=== PATIENT | male | born 1955 | race Caucasian/White ===

== ENCOUNTER 2022-09-05 06:01 | Inpatient (IN) | payer OTHER ==
[~2022-09-05] VITALS: Ht 170.2 cm; Wt 73.0 kg
[2022-09-05] VITALS (25 sets, daily range): BP systolic 74–134; BP diastolic 25–57
[2022-09-05] MEDS ORDERED: ALLO100T PO (06:39)
[2022-09-05] MEDS ORDERED: AMOX-427 PO (06:39)
[2022-09-05] MEDS ORDERED: AMOX500C2 PO (06:39)
[2022-09-05] MEDS ORDERED: HYDR-3972 PO (06:39)
--- NOTE | 2022-09-05 06:43 | NUR ---
Patient's caregiver Bandar Calvo who gave DPA number Marly Nilesh contact.
[2022-09-05] MEDS ORDERED: IV NORMAL SALINE 500 ML BAG IV ONE (06:45)
[2022-09-05] MEDS ORDERED: ATROPINE SULFATE 1 MG/10 ML DISP.SYRIN ONE (06:57)
[2022-09-05] MEDS ORDERED: EPINEPHRINE 1:10,000 1 MG/10 ML DISP.SYRIN ONE (06:57)
[2022-09-05] MEDS ORDERED: NALOXONE HCL 0.4 MG/ML AMPUL IV ONE (07:00)
[2022-09-05] MEDS ORDERED: ATROPINE SULFATE 1 MG/10 ML DISP.SYRIN IV ONE (07:00)
[2022-09-05] MEDS ORDERED: CALCIUM GLUCONATE IV 1 GM in IV DEXTROSE 5% 50 ML IV ONE ×2 (07:30→07:45)
[2022-09-05 07:32] LABS: SITE, VBG RIGHT RADIAL
[2022-09-05 07:33] LABS: HEMATOCRIT 28.3 % (36.7-47.1); MEAN CORPUSCULAR HEMOGLOBIN 26.7 uug (23.8-33.4); PLATELET COUNT (AUTO) 278 K/uL (152-348)
[2022-09-05] MEDS ORDERED: CALCIUM GLUCONATE 1 GM/10 ML VIAL IV ONE (07:34)
[2022-09-05 07:44] LABS: ALANINE AMINOTRANSFERASE 36 U/L (16-63); ALKALINE PHOSPHATASE 384 U/L (50-136); ASPARTATE AMINOTRANSFERASE 40 U/L (15-37); BILIRUBIN,DIRECT 0.5 mg/dL (0.0-0.2); BILIRUBIN,TOTAL 0.8 mg/dL (0.2-1.0); CARBON DIOXIDE 16 mmol/L (21-32); CHLORIDE 99 mmol/L (98-107); CREATININE 3.7 mg/dL (0.6-1.3); GLUCOSE 315 mg/dL (74-106); POTASSIUM 5.4 mmol/L (3.5-5.1); TOTAL PROTEIN, SERUM 6.4 g/dL (6.4-8.2); UREA NITROGEN, BLOOD 58 mg/dL (7-18)
[2022-09-05] MEDS ORDERED: VANCOMYCIN IV 1,000 MG in IV DEXTROSE 5% 250 ML IV SCH (08:15)
[2022-09-05] MEDS ORDERED: CEFTRIAXONE 2 G in IV DEXTROSE 5% 100 ML IV SCH (08:15)
[2022-09-05] MEDS ORDERED: FUROSEMIDE 40 MG/4 ML VIAL ONE (08:19)
[2022-09-05 08:33] LABS: ETHANOL < 3 MG/DL (0-0)
[2022-09-05] MEDS ORDERED: VANCOMYCIN IV 200 ML ONE (08:45)
[2022-09-05] MEDS ORDERED: CEFTRIAXONE /D5W 50ML IVPB **ER PYXIS IV ONE ×2 (08:45→13:10)
[2022-09-05] MEDS: EPINEPHRINE AMP 5 MG in IV NORMAL SALINE 245 ML IV PRN ×3 (09:02→16:44)
[2022-09-05] MEDS ORDERED: HEPARIN/D5W DRIP 500 ML IV PRN (09:45)
[2022-09-05] MEDS ORDERED: FUROSEMIDE 40 MG/4 ML VIAL IV ONE (10:00)
[2022-09-05 10:20] LABS: *BILIRUBIN,URIN NEGATIVE (NEGATIVE); *BLOOD, URINE NEGATIVE (NEGATIVE); *CLARITY,URINE CLEAR (CLEAR); *COLOR,URINE YELLOW (YELLOW); *KETONES,URINE NEGATIVE (NEGATIVE); *UROBILINOGEN,URINE 0.2 E.U./dl (NORMAL); LEUKOCYTE ESTERASE ,URINE NEGATIVE (NEGATIVE); NITRITE, URINE NEGATIVE (NEGATIVE); PH,URINE 5.5 (5.0-8.0); UGLUCOSE NEGATIVE (NEGATIVE)
[2022-09-05] MEDS ORDERED: HALOPERIDOL LACTATE 5 MG/1 ML VIAL ONE (10:20)
[2022-09-05] MEDS ORDERED: HALOPERIDOL LACTATE 5 MG/1 ML VIAL IV ONE (10:30)
[2022-09-05 10:39] LABS: *AMPHETAMINE, URINE NEGATIVE (NEGATIVE); *CANNABINOID, URINE NEGATIVE (NEGATIVE); *COCCAINE, URINE NEGATIVE (NEGATIVE); *OPIATE, URINE NEGATIVE (NEGATIVE); *PHENCYCLIDINE SCREEN,URINE NEGATIVE (NEGATIVE)
[2022-09-05 11:02] LABS: THYROID STIMULATING HORMONE < 0.007 mIU/mL (0.358-3.740)
[2022-09-05 11:04] LABS: DIGOXIN < 0.2 ng/mL (0.9-2.0)
--- NOTE | 2022-09-05 11:17 | NUR ---
0723am: [employer] Administrator assumes care: nursing SBAR received from ANAM Palma. Patient's blood is being drawn by lab automatic presser and respiratory therapist at this time. 0726am: Pharmacy staff Catia notified re: compound prn EPinephrine drip please 0732am: ER registration/admitting staff Erick notified re: admission for this patient 0904am: Epi drip started, monitored closely. Patient is more alert and talking now, MD notified. 1115am: soft restraints to both wrists are on per MD order, pt is seen removing his therapeutic lines (e.g. oxygen supplement, IV lines, husain catheter)
[2022-09-05 11:43] LABS: BACTERIA,URINE NONE SEEN /HPF (NONE SEEN); RBC,URINE 0-3 /HPF (0-3); SQUAMOUS EPITHELIAL CELL,UR FEW /HPF (NONE SEEN); WBC,URINE 0-3 /HPF (0-3)
[2022-09-05] MEDS ORDERED: TACR100O2 TP (12:03)
[2022-09-05] MEDS ORDERED: ASPI81TA31 PO (12:03)
[2022-09-05] MEDS ORDERED: FLUT16SP BNOSTRILS (12:03)
[2022-09-05] MEDS ORDERED: LOSA25TA27 PO (12:03)
[2022-09-05] MEDS ORDERED: INSU100V7 SQ ×2 (12:03)
[2022-09-05] MEDS ORDERED: TRAZ-182 PO (12:03)
[2022-09-05] MEDS ORDERED: COLC0.6C3 PO (12:03)
[2022-09-05] MEDS ORDERED: AZEL137S7 BNOSTRILS (12:03)
[2022-09-05] MEDS ORDERED: HYDR-894 PO (12:03)
[2022-09-05] MEDS ORDERED: INSU100C SUBCUT (12:03)
[2022-09-05] MEDS ORDERED: OSEL6SUS4 PO (12:03)
[2022-09-05] MEDS ORDERED: DOXY-326 PO (12:03)
[2022-09-05] MEDS ORDERED: ROSU10TA2 PO (12:03)
[2022-09-05] MEDS ORDERED: CICL6.1H2 INH (12:03)
[2022-09-05] MEDS ORDERED: CALC0.253 PO (12:03)
[2022-09-05] MEDS ORDERED: EZET10TA15 PO (12:03)
[2022-09-05] MEDS ORDERED: AMLO5TAB4 PO (12:03)
[2022-09-05] MEDS ORDERED: CARV12.52 PO (12:03)
[2022-09-05] MEDS ORDERED: MUPI22OI2 TP (12:03)
--- NOTE | 2022-09-05 12:17 | NUR ---
No critical care bed available in [place] , "OK to admit" in our hospital per ER registration/admitting staff Nemo.
--- NOTE | 2022-09-05 12:50 | NUR ---
patient brought in at this time on gurney and monitor with epi drip running at 0.15 mcg/ kg/min heart rate range 38- mid 40s. increases when patient aroused or transfer to low 50's. Patient arousable to name, unable to verbalize when asked questions, patient becomes agitated when transferring to bed. patient brought up on bilateral wrist restraints. Noted multiple self inflicted scratches on all extremities, pictures taken and a buttocks open sore wound.
--- NOTE | 2022-09-05 13:00 | NUR ---
Admitting physician Dr. Thakkar called to be notified of pt's arrival to the unit. Orders to continue with epinephrine drip and start pt. on Heparin drip and follow ACS protocol.
[2022-09-05] MEDS ORDERED: HEPARIN SODIUM,PORCINE 5,000 UNITS/ML VIAL IV ONE ×2 (14:00)
[2022-09-05] MEDS: HEPARIN/D5W DRIP 500 ML IV PRN (14:03)
[2022-09-05] MEDS ORDERED: IV NORMAL SALINE 1000 ML BAG IV ONE (14:45)
[2022-09-05] MEDS ORDERED: ONDANSETRON 4 MG/2 ML VIAL IV PRN (14:45)
[2022-09-05] MEDS ORDERED: VANCOMYCIN IV 1,000 MG in IV DEXTROSE 5% 250 ML IV ONE (14:45)
[2022-09-05] MEDS: IV NS 1000 ML 1,000 ML IV PRN (15:12)
[2022-09-05] MEDS: PIPERACILLIN/TAZO 2.25 G in IV DEXTROSE 5% 50 ML IV SCH ×2 (16:25→21:44)
--- NOTE | 2022-09-05 17:10 | NUR ---
Spoke to Dr. Sabillon to inform blood sugar was critical high 455, and repeat lactic acid increased to 5.3. and patient maintaining bradycardia in high 30's while increasing epi drip. Please refer to order history for orders and call Dr. Wallace regarding adding another drip.
[2022-09-05] MEDS ORDERED: INSULIN REGULAR, HUMAN 300 UNITS/3 ML VIAL SQ PRN (17:15)
[2022-09-05] MEDS ORDERED: DOPamine IV DRIP 400 MG/250ML 250 ML IV PRN (17:15)
[2022-09-05] MEDS ORDERED: DEXTROSE 50% 50 ML DISP.SYRIN IV PRN (17:15)
[2022-09-05] MEDS ORDERED: INSULIN REGULAR, HUMAN 300 UNIT/3 ML VIAL SQ PRN (17:15)
--- NOTE | 2022-09-05 17:15 | NUR ---
Added Dopamine drip to start at 5mcg/kg/min per Dr Wallace. Will Communicate cardio with primary regarding patient.
[2022-09-05] MEDS ORDERED: BLOOD SUGAR DIAGNOSTIC 1 EACH STRIP VI SCH (17:30)
[2022-09-05] MEDS ORDERED: TAZOBACTAM IV SCH (18:00)
[2022-09-05] MEDS ORDERED: DEXTROSE 5% IV SCH (18:00)
[2022-09-05] MEDS ORDERED: PIPERACILLIN SODIUM IV SCH (18:00)
[2022-09-05] MEDS: INSULIN REGULAR, HUMAN 100 UNIT in IV NORMAL SALINE 99 ML IV PRN ×2 (18:39)
[2022-09-05] MEDS: BLOOD SUGAR DIAGNOSTIC 1 EACH STRIP VI SCH ×5 (19:08→23:27)
[2022-09-05] MEDS ORDERED: SODIUM BICARBONATE 8.4% 50 MEQ/50 ML DISP.SYRIN IV ONE (19:45)
[2022-09-05 20:23] LABS: ABG BASE EXCESS -19.2 mmol/L; ABG HCO3 7.1 mmol/L; ABG PH 7.191 (7.350-7.450); ABG PO2 63.4 mmHg (75.0-100.0); ABG SITE LEFT FEMORAL; ABG TOTAL HEMOGLOBIN 9.2 G/dL (13.5-18.0); COHb 0.3 % (0.5-1.5); MetHb 0.3 % (0.0-1.5); O2Hb 85.2 % (94.0-97.0); VENT MODE Nasal Cannula
[2022-09-05] MEDS: DOPamine IV DRIP 800 MG/250ML 250 ML IV PRN (20:30)
[2022-09-05 20:40] LABS: CREATININE 4.4 mg/dL (0.6-1.3); POTASSIUM 5.3 mmol/L (3.5-5.1)
[2022-09-05] MEDS: EPINEPHRINE AMP 10 MG in IV NORMAL SALINE 240 ML IV PRN (20:40)
[2022-09-06] VITALS (82 sets, daily range): BP systolic 68–155; BP diastolic 15–108
[2022-09-06] MEDS: BLOOD SUGAR DIAGNOSTIC 1 EACH STRIP VI SCH ×21 (00:31→20:00)
[2022-09-06] MEDS: EPINEPHRINE AMP 10 MG in IV NORMAL SALINE 240 ML IV PRN ×3 (00:34→06:07)
[2022-09-06 00:44] LABS: CREATININE 4.9 mg/dL (0.6-1.3); POTASSIUM 4.5 mmol/L (3.5-5.1)
[2022-09-06] MEDS: IV NS 1000 ML 1,000 ML IV PRN (01:45)
[2022-09-06] MEDS ORDERED: HUM INSULIN NPH/REG INSULIN HM 70/30 1000 UNITS/10 ML VIAL SQ ONE (01:54)
[2022-09-06] MEDS: INSULIN REGULAR, HUMAN 100 UNIT in IV NORMAL SALINE 99 ML IV PRN ×2 (02:00)
[2022-09-06] MEDS ORDERED: EPINEPHRINE 1 MG/1 ML AMP ONE ×2 (03:10→03:14)
[2022-09-06] MEDS: PIPERACILLIN/TAZO 2.25 G in IV DEXTROSE 5% 50 ML IV SCH ×4 (04:12→21:52)
[2022-09-06] MEDS: DOPamine IV DRIP 800 MG/250ML 250 ML IV PRN (04:13)
[2022-09-06 04:44] LABS: CREATININE 4.9 mg/dL (0.6-1.3); POTASSIUM 3.7 mmol/L (3.5-5.1)
[2022-09-06 06:03] LABS: HEMATOCRIT 30.2 % (36.7-47.1); MEAN CORPUSCULAR HEMOGLOBIN 26.1 uug (23.8-33.4); MEAN CORPUSCULAR VOLUME 81.9 fL (73.0-96.2); PLATELET COUNT (AUTO) 323 K/uL (152-348)
[2022-09-06 06:13] LABS: ALANINE AMINOTRANSFERASE 176 U/L (16-63); ALKALINE PHOSPHATASE 331 U/L (50-136); ASPARTATE AMINOTRANSFERASE 384 U/L (15-37); BILIRUBIN,TOTAL 0.7 mg/dL (0.2-1.0); CARBON DIOXIDE 20 mmol/L (21-32); CHLORIDE 101 mmol/L (98-107); POTASSIUM 3.6 mmol/L (3.5-5.1); TOTAL PROTEIN, SERUM 6.2 g/dL (6.4-8.2)
[2022-09-06 06:46] LABS: *BLOOD, URINE 3+ (NEGATIVE); *CLARITY,URINE CLOUDY (CLEAR); *COLOR,URINE YELLOW (YELLOW); *KETONES,URINE TRACE (NEGATIVE); *UROBILINOGEN,URINE 0.2 E.U./dl (NORMAL); LEUKOCYTE ESTERASE ,URINE 1+ (NEGATIVE); NITRITE, URINE NEGATIVE (NEGATIVE); UGLUCOSE NEGATIVE (NEGATIVE)
[2022-09-06 07:25] LABS: *CREATININE,URINE 68.4 mg/dL (30-125); *URINE TOTAL PROTEIN RANDOM 136.9 mg/dL (<150/24HR)
--- NOTE | 2022-09-06 07:30 | NUR ---
REPORT GIVEN TO ANAM CARLSON
[2022-09-06 07:41] LABS: *BILIRUBIN,URIN 1+ (NEGATIVE)
[2022-09-06 07:52] LABS: GLUCOSE 318 mg/dL (74-106)
[2022-09-06 07:53] LABS: UREA NITROGEN, BLOOD 81 mg/dL (7-18)
[2022-09-06 08:23] LABS: POTASSIUM 3.6 mmol/L (3.5-5.1)
[2022-09-06 08:30] LABS: RBC,URINE 80-100 /HPF (0-3)
[2022-09-06 08:33] LABS: BACTERIA,URINE FEW /HPF (NONE SEEN); SQUAMOUS EPITHELIAL CELL,UR FEW /HPF (NONE SEEN)
[2022-09-06] MEDS: NOREPINEPHRINE BITARTRATE 32 MG in IV NORMAL SALINE 218 ML IV PRN (08:39)
[2022-09-06] MEDS: PANTOPRAZOLE SODIUM 40 MG VIAL IV SCH (08:50)
[2022-09-06 09:18] LABS: ABG HCO3 18.4 mmol/L; ABG PCO2 32.4 mmHg (35.0-45.0); ABG PH 7.372 (7.350-7.450); ABG PO2 71.8 mmHg (75.0-100.0); ABG SITE RIGHT RADIAL; ABG TOTAL HEMOGLOBIN 10.4 G/dL (13.5-18.0); COHb 0.3 % (0.5-1.5); MetHb 0.4 % (0.0-1.5); O2Hb 92.6 % (94.0-97.0); VENT MODE Nasal Cannula
[2022-09-06] MEDS ORDERED: BUMETANIDE INJ 2 MG in IV DEXTROSE 5% 32 ML IV ONE (09:30)
[2022-09-06] MEDS: ASPIRIN 300 MG RECTAL SUPP RC SCH (09:36)
--- NOTE | 2022-09-06 11:12 | NUR ---
called Dr. Sabillon per insulin protocol for blood sugar 36. informed that giving D50 and still holding insulin drip per protocol. will change IVF and add D5 to NS @100. And continue protocol until anion gap closes.
[2022-09-06] MEDS ORDERED: DEXTROSE 50% 50 ML DISP.SYRIN IV ONE (11:15)
[2022-09-06] MEDS: IV D5/ 0.9% NACL 1,000 ML IV PRN ×2 (11:30→22:54)
[2022-09-06 12:25] LABS: CREATININE 4.9 mg/dL (0.6-1.3); POTASSIUM 4.4 mmol/L (3.5-5.1)
[2022-09-06] MEDS ORDERED: HEPARIN SODIUM,PORCINE 5,000 UNITS/ML VIAL IV ONE (13:30)
[2022-09-06] MEDS ORDERED: DEXTROSE 50% 50 ML DISP.SYRIN IV PRN ×2 (14:30→22:30)
[2022-09-06] MEDS: HEPARIN/D5W DRIP 500 ML IV PRN (16:31)
[2022-09-06 19:58] LABS: CREATININE 5.2 mg/dL (0.6-1.3); POTASSIUM 5.1 mmol/L (3.5-5.1)
--- NOTE | 2022-09-06 20:26 | NUR ---
Insulin off, as ordered. 2114 PTT 123.1. Heparin @ 1250 off; will resume in one hour @ 1050 units / hour.
[2022-09-06] MEDS: INSULIN GLARGINE,HUM 300 UNITS/3 ML CARTRIDGE SQ SCH (21:49)
[2022-09-06] MEDS ORDERED: OLANZAPINE 10 MG VIAL IM ONE (22:30)
[2022-09-07] VITALS (44 sets, daily range): BP systolic 91–144; BP diastolic 35–76
[2022-09-07] MEDS ORDERED: INSULIN REGULAR, HUMAN 300 UNIT/3 ML VIAL SQ PRN
[2022-09-07] MEDS: BLOOD SUGAR DIAGNOSTIC 1 EACH STRIP VI SCH ×4 (00:19→17:13)
[2022-09-07] MEDS: INSULIN REGULAR, HUMAN 300 UNIT/3 ML VIAL SQ PRN ×2 (00:21→05:47)
[2022-09-07] MEDS: PIPERACILLIN/TAZO 2.25 G in IV DEXTROSE 5% 50 ML IV SCH ×3 (04:19→16:58)
[2022-09-07 05:13] LABS: MEAN CORPUSCULAR HEMOGLOBIN 26.3 uug (23.8-33.4); MEAN CORPUSCULAR VOLUME 82.2 fL (73.0-96.2); PLATELET COUNT (AUTO) 239 K/uL (152-348)
[2022-09-07 05:34] LABS: ALANINE AMINOTRANSFERASE 151 U/L (16-63); ALKALINE PHOSPHATASE 217 U/L (50-136); ASPARTATE AMINOTRANSFERASE 205 U/L (15-37); BILIRUBIN,TOTAL 0.5 mg/dL (0.2-1.0); CARBON DIOXIDE 18 mmol/L (21-32); CHLORIDE 104 mmol/L (98-107); CREATINE KINASE, TOTAL 1287 U/L (39-308); CREATININE 5.6 mg/dL (0.6-1.3); PHOSPHOROUS 7.1 mg/dL (2.5-4.9); POTASSIUM 5.2 mmol/L (3.5-5.1); TOTAL PROTEIN, SERUM 4.9 g/dL (6.4-8.2); VANCOMYCIN,RANDOM 20.1 ug/mL (18.0-26.0)
[2022-09-07 05:35] LABS: GLUCOSE 399 mg/dL (74-106); UREA NITROGEN, BLOOD 86 mg/dL (7-18)
[2022-09-07 08:01] LABS: ABG BASE EXCESS -9.5 mmol/L; ABG HCO3 15.3 mmol/L; ABG PCO2 29.2 mmHg (35.0-45.0); ABG PH 7.336 (7.350-7.450); ABG PO2 78.5 mmHg (75.0-100.0); ABG SITE RIGHT RADIAL; ABG TOTAL HEMOGLOBIN 9.4 G/dL (13.5-18.0); COHb 0.3 % (0.5-1.5); MetHb 0.1 % (0.0-1.5); O2Hb 93.7 % (94.0-97.0)
[2022-09-07] MEDS: NOREPINEPHRINE BITARTRATE 32 MG in IV NORMAL SALINE 218 ML IV PRN (08:22)
[2022-09-07] MEDS: ASPIRIN 300 MG RECTAL SUPP RC SCH (09:14)
[2022-09-07] MEDS: FUROSEMIDE 40 MG/4 ML VIAL IV SCH ×2 (09:14→20:10)
[2022-09-07] MEDS: PANTOPRAZOLE SODIUM 40 MG VIAL IV SCH (09:15)
[2022-09-07] MEDS: ALBUMIN HUMAN 25% 100 ML IV SCH ×3 (09:18→20:11)
[2022-09-07] MEDS ORDERED: ALBUTEROL SULFATE 2.5 MG/3 ML NEBU NEB PRN (10:30)
--- NOTE | 2022-09-07 10:52 | NUR ---
WOUND CARE CONSULT: PT PRESENTS WITH SCABS AND SCRATCH ZARATE ON BODY, UNKNOWN ETIOLOGY, SACRAL DEEP TISSUE INJURY IN EVOLUTION AND LEFT INDEX FINGER DRY WOUND (WITHOUT NAIL) PRESENT ON ADMISSION. DEFER TO PMD FOR GENERALIZED SKIN CONDITION. SURGICAL CONSULT CALLED TO DR RAHMAN FOR SACRAL WOUND AND FINGER. DISCUSSED SKIN PROTECTION WITH NURSING STAFF. PT IS ON FIRST STEP [facility]. Addendum: 09/07/22 at 1054 by BERRY DRAKE RN Amended: Links added.
[2022-09-07] MEDS ORDERED: REMEDY ESSENTIAL ZINC PASTE 113 GM TOP PRN (11:00)
[2022-09-07] MEDS: INSULIN GLARGINE,HUM 300 UNITS/3 ML CARTRIDGE SQ SCH ×2 (11:06→20:37)
--- NOTE | 2022-09-07 19:00 | NUR ---
RECEIVE REPORT FROM OSIRIS MENDIETA.
[2022-09-07] MEDS ORDERED: OLANZAPINE 10 MG VIAL IM ONE (19:45)
[2022-09-07] MEDS: REMEDY ESSENTIAL ZINC PASTE 113 GM TOP SCH (20:23)
[2022-09-07] MEDS: CADEXOMER IODINE 40 GM TUBE TOP SCH (22:30)
[2022-09-08] VITALS (15 sets, daily range): BP systolic 100–156; BP diastolic 39–67
[2022-09-08] MEDS: BLOOD SUGAR DIAGNOSTIC 1 EACH STRIP VI SCH ×4 (00:08→17:58)
[2022-09-08] MEDS: ALBUMIN HUMAN 25% 100 ML IV SCH (00:47)
[2022-09-08] MEDS: PIPERACILLIN/TAZO 2.25 G in IV DEXTROSE 5% 50 ML IV SCH ×3 (00:49→17:40)
[2022-09-08 05:28] LABS: HEMATOCRIT 25.3 % (36.7-47.1); MEAN CORPUSCULAR HEMOGLOBIN 26.7 uug (23.8-33.4); MEAN CORPUSCULAR VOLUME 81.1 fL (73.0-96.2); PLATELET COUNT (AUTO) 205 K/uL (152-348)
[2022-09-08 05:48] LABS: CREATININE 4.9 mg/dL (0.6-1.3); MAGNESIUM 1.9 mg/dL (1.8-2.4); PHOSPHOROUS 6.4 mg/dL (2.5-4.9); POTASSIUM 4.1 mmol/L (3.5-5.1)
[2022-09-08 07:06] LABS: HEPATITIS B SURFACE AG Negative (Negative)
[2022-09-08] MEDS: REMEDY ESSENTIAL ZINC PASTE 113 GM TOP SCH ×2 (09:00→21:00)
[2022-09-08] MEDS: INSULIN GLARGINE,HUM 300 UNITS/3 ML CARTRIDGE SQ SCH ×2 (09:00→21:00)
[2022-09-08] MEDS: CADEXOMER IODINE 40 GM TUBE TOP SCH (09:00)
[2022-09-08] MEDS: ASPIRIN 300 MG RECTAL SUPP RC SCH (09:25)
[2022-09-08] MEDS: PANTOPRAZOLE SODIUM 40 MG VIAL IV SCH (09:26)
[2022-09-08] MEDS: FUROSEMIDE 40 MG/4 ML VIAL IV SCH ×2 (09:26→22:34)
--- NOTE | 2022-09-08 17:00 | NUR ---
Received this transfer CCU by bed. Awake, alert, oriented to name, restless. With bilateral soft wrist restraints, monitored per protocol. O2 at 3L/NC with O2 sat of 99%. Heparin drip infusing at 1000 units/hr with latest PTT of 56.7. TLC Central line intact to right femoral. BG 64 Juice given
--- NOTE | 2022-09-08 18:00 | NUR ---
BG rechecked 83. Hemodialysis at bed side
[2022-09-08] MEDS ORDERED: HEPARIN/D5W DRIP 500 ML ONE (22:07)
[2022-09-08] MEDS: HEPARIN/D5W DRIP 500 ML IV PRN (22:23)
[2022-09-09] VITALS: BP 110/51
[2022-09-09] MEDS: PIPERACILLIN/TAZO 2.25 G in IV DEXTROSE 5% 50 ML IV SCH ×2 (00:17→08:28)
[2022-09-09 01:00] VITALS: BP 110/51
[2022-09-09 04:00] VITALS: BP 120/76
[2022-09-09] MEDS: BLOOD SUGAR DIAGNOSTIC 1 EACH STRIP VI SCH ×2 (05:50)
[2022-09-09 06:27] LABS: ABG HCO3 24.8 mmol/L; ABG PCO2 35.9 mmHg (35.0-45.0); ABG PH 7.457 (7.350-7.450); ABG PO2 76.8 mmHg (75.0-100.0); ABG SITE RIGHT RADIAL; ABG TOTAL HEMOGLOBIN 8.7 G/dL (13.5-18.0); COHb 0.3 % (0.5-1.5); MetHb 0.2 % (0.0-1.5); O2Hb 94.4 % (94.0-97.0); VENT MODE Nasal Cannula
--- NOTE | 2022-09-09 07:18 | NUR ---
REPORT GIVEN TO ANAM LARSON
[2022-09-09 07:30] LABS: HEMATOCRIT 24.5 % (36.7-47.1); MEAN CORPUSCULAR HEMOGLOBIN 26.3 uug (23.8-33.4); MEAN CORPUSCULAR VOLUME 81.6 fL (73.0-96.2); PLATELET COUNT (AUTO) 124 K/uL (152-348)
[2022-09-09 07:55] LABS: CREATININE 4.5 mg/dL (0.6-1.3); MAGNESIUM 1.9 mg/dL (1.8-2.4); PHOSPHOROUS 5.2 mg/dL (2.5-4.9); POTASSIUM 4.1 mmol/L (3.5-5.1)
[2022-09-09] MEDS: PANTOPRAZOLE SODIUM 40 MG VIAL IV SCH (08:24)
[2022-09-09] MEDS: FUROSEMIDE 40 MG/4 ML VIAL IV SCH (08:25)
[2022-09-09] MEDS: ASPIRIN 300 MG RECTAL SUPP RC SCH (08:25)
[2022-09-09] MEDS: CADEXOMER IODINE 40 GM TUBE TOP SCH (08:28)
[2022-09-09] MEDS: INSULIN GLARGINE,HUM 300 UNITS/3 ML CARTRIDGE SQ SCH (08:33)
[2022-09-09] MEDS: REMEDY ESSENTIAL ZINC PASTE 113 GM TOP SCH (08:40)
--- NOTE | 2022-09-09 11:52 | NUR ---
0730-Rec'd patient in bed, asleep, no respiratory distress noted, on 3LPM via NC. Patient able to wake up on verbal commands, denies pain. no s/s of hypo/HTN or hypo/hyperglycemia noted. Klein catheter with 500mls yellow urine output. MARILU dialysis fistula in place with site intact. RT groin Triple-lumen catheter flushing well with site intact, RT AC 18" G flushing well with site intact. Per NOC endorsement patient in Heparin drip for Dx: ACS/AMI with pending PTT lab results for further dosing of heparin. No s/s of bleeding observed. All safety precautions observed. handled gently and carefully during care. 0900-Scheduled/due medication administered with no ASE noted. Patient able to consumed 25% of his breakfast, requires of one person assist to be fed, continues under telemetry observation @ sinus rhythm. Patient to be transfer out to [facility] for a heart cath procedure. Dr. Thakkar in the building making his rounds. 15-Rec'd a call from [facility] personnel (Mandie), patient's VS provided, per Mandie, ambulance will be picking up patient at 1100. 1020-[facility] unit 67 ambulance/personnel arrived to product picker patient. Full report and paper work provided. 1030-Spoke to Syeda/Vincent (nurses) at [facility] [place], full report provided regarding patient's condition, medication administered and health/D. 1135-Able to speak with ELISSA Barth (next of [place]) informed Marly patient has been transferred out to [facility], room #5353, per Marly, someone already notified her prior.
--- NOTE | 2022-09-09 12:11 | NUR ---
Patient left in good stable conditions within his baseline. Patient denied any pain or discomfort. Tolerated transfer to [facility] well with no c/o headache or dizziness. BS checked prior leaving building and results 92. No physical or respiratory distress noted.
[2022-09-12 13:07] LABS: A/G RATIO 0.7 (0.7-1.7); ALBUMIN 1.8 g/dL (2.9-4.4); ALPHA-1-GLOBULIN 0.3 g/dL (0.0-0.4); ALPHA-2-GLOBULIN 0.7 g/dL (0.4-1.0); BETA GLOBULIN 0.9 g/dL (0.7-1.3); GAMMA GLOBULIN 0.7 g/dL (0.4-1.8); GLOBULIN, TOTAL 2.6 g/dL (2.2-3.9); M-SPIKE Not Observed g/dL (Not Observed)
== END 2022-09-09 10:30 | disposition short-term general hospital (02) | DRG 871 ==
LOC: ER 06:06 → CCU 12:24 → TELE-TD3 09-08 16:59 → TELE3 09-09 00:23
PROVIDERS: ADMIT Internal Medicine; ATTEND Internal Medicine
PROC: 06HM33Z Insertion of Infusion Device into Right Femoral Vein, Percutaneous Approach (ICD-10-PCS; 2022-09-05)
PROC: B54BZZA Ultrasonography of Right Lower Extremity Veins, Guidance (ICD-10-PCS; 2022-09-05)
PROC: 5A1D70Z Performance of Urinary Filtration, Intermittent, Less than 6 Hours Per Day (ICD-10-PCS; principal; 2022-09-07)
DX: A41.9 Sepsis, unspecified organism (principal); E11.10 Type 2 diabetes mellitus with ketoacidosis without coma; J96.01 Acute respiratory failure with hypoxia; K72.00 Acute and subacute hepatic failure without coma; N17.0 Acute kidney failure with tubular necrosis; G92.8 Other toxic encephalopathy; I50.31 Acute diastolic (congestive) heart failure; I21.A1 Myocardial infarction type 2; R65.21 Severe sepsis with septic shock; J18.9 Pneumonia, unspecified organism; N18.4 Chronic kidney disease, stage 4 (severe); N39.0 Urinary tract infection, site not specified; I13.0 Hypertensive heart and chronic kidney disease with heart failure and stage 1 through stage 4 chronic kidney disease, or unspecified chronic kidney disease; F84.5 Asperger's syndrome; J90 Pleural effusion, not elsewhere classified; E11.52 Type 2 diabetes mellitus with diabetic peripheral angiopathy with gangrene; I96 Gangrene, not elsewhere classified; E86.1 Hypovolemia; I25.2 Old myocardial infarction; I25.5 Ischemic cardiomyopathy; Z79.4 Long term (current) use of insulin; Z95.1 Presence of aortocoronary bypass graft; I25.10 Atherosclerotic heart disease of native coronary artery without angina pectoris; E05.90 Thyrotoxicosis, unspecified without thyrotoxic crisis or storm; Z88.2 Allergy status to sulfonamides; Z79.82 Long term (current) use of aspirin; E11.22 Type 2 diabetes mellitus with diabetic chronic kidney disease; D64.9 Anemia, unspecified; E88.9 Metabolic disorder, unspecified; R74.01 Elevation of levels of liver transaminase levels; L89.156 Pressure-induced deep tissue damage of sacral region; E83.9 Disorder of mineral metabolism, unspecified; M89.9 Disorder of bone, unspecified; E87.5 Hyperkalemia; R00.1 Bradycardia, unspecified
CPT/HCPCS: 36415; 36556; 36600; 51702; 70450; 71045; 71275; 73560; 76604; 76770; 82533; 83605; 83735; 83970; 84100; 84155; 84156; 84165; 84300; 84443; 84481; 84484; 85025; 85610; 85730; 86706; 86850; 86900; 86901; 87040; 87340; 90937; 93005; 93307; A4663; A6209; C9113; G0378; G0480; J0171; J0461; J0610; J0696; J1630; J1644; J1815; J1940; J2358; J2543; J3370; J3490; J7040; J7042; J7050; P9047